=== PATIENT | male | born 1990 | race Caucasian/White ===

== ENCOUNTER 2016-06-13 21:09 | Emergency (ER) | payer OTHER ==
[~2016-06-13] VITALS: Ht 182.9 cm; Wt 117.0 kg
[2016-06-13 22:02] VITALS: BP 141/80
[2016-06-13] MEDS ORDERED: LORAZEPAM 1 MG TABLET. PO ONE (22:15)
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
[2016-06-14] MEDS ORDERED: IBUPROFEN 600 MG TABLET. PO ONE (00:15)
--- NOTE | 2016-06-14 08:11 | RAD ---
Right ankle, 2 views, 06/13/2016: History: Ankle sprain No acute fracture or dislocation is identified. There is mild soft tissue swelling about the ankle. IMPRESSION: No acute bony abnormality is detected.
== END 2016-06-14 00:30 | disposition home or self-care (01) ==
LOC: EEVIPCON 21:09 → ER 21:09
DX: S02.81XA Fracture of other specified skull and facial bones, right side, initial encounter for closed fracture (principal); S93.401A Sprain of unspecified ligament of right ankle, initial encounter; S09.90XA Unspecified injury of head, initial encounter; F31.9 Bipolar disorder, unspecified; Z88.8 Allergy status to other drugs, medicaments and biological substances; Y08.89XA Assault by other specified means, initial encounter; Y93.89 Activity, other specified; Y92.89 Other specified places as the place of occurrence of the external cause; Y99.8 Other external cause status
CPT/HCPCS: 70486; 73600; 99284-25